=== PATIENT | male | born 1980 | race Caucasian/White ===

== ENCOUNTER → 2019-09-03 11:20 | Outpatient (CLI) | payer OTHER, SELFPAY ==
--- NOTE | ~2019-09-03 | US_ITS ---
EXAMINATION: US soft tissue head and neck DATE: 09/03/2019 11:41 INDICATION: Right neck mass. TECHNIQUE: Multiple ultrasound images of the thyroid were obtained. COMPARISON: None. FINDINGS: The right thyroid lobe measures 4.9 x 3.5 x 3.7 cm. The left thyroid lobe measures 5.1 x 1.1 x 1.6 c m. In the right thyroid lobe, there is a 3.6 cm predominantly cystic nodule with smooth margin with small mural solid component that is hypoechoic with punctate echogenic foci (TI-RADS TR4). IMPRESSION: 1. Right thyroid nodule. Consider ultrasound-guided fine-needle aspiration of the solid component of the nodule. Reviewed, dictated and finalized at location A. IMPRESSION: 1. Right thyroid nodule. Consider ultrasound-guided fine-needle aspiration of t he solid component of the nodule.
== END ==
PROVIDERS: PCP Student in an Organized Health Care Education/Training Program; Visit Provider Student in an Organized Health Care Education/Training Program
DX: R22.1 Localized swelling, mass and lump, neck (principal); E04.1 Nontoxic single thyroid nodule
CPT/HCPCS: 76536

== ENCOUNTER 2019-09-11 13:01 | Outpatient (CLI) | payer OTHER, SELFPAY ==
--- NOTE | ~2019-09-11 | US_ITS ---
EXAMINATION: US FNA w image guidance DATE: 09/11/2019 14:11 INDICATION: Right thyroid nodule. TECHNIQUE: The procedure and its benefits, risks, and benefits were discussed with the patient. Risks specifical ly discussed included bleeding. The patient verbalized understanding of the risks and agreed to proce ed. The neck was prepped and draped in the usual sterile manner. 1% lidocaine was used for local ane sthesia. The liquid portion of the right thyroid nodule was aspirated with a 21-gauge needle and disc arded. 5 passes were made with a 25G needle into the solid portion of the nodule. Appropriate needle location was documented with continuous sonographic guidance. There were no immediate complications . FINDINGS: Grayscale ultrasound images demonstrate needles advanced into a 3.5 cm mixed solid and cystic right t hyroid nodule for biopsy. IMPRESSION: 1. Ultrasound-guided fine needle aspiration of a 3.5 cm mixed solid and cystic right thyroid nodule. Reviewed, dictated and finalized at location A.
== END 2019-09-11 13:02 | disposition home or self-care (01) ==
LOC: ANHIMG 13:07
PROVIDERS: PCP Student in an Organized Health Care Education/Training Program; Visit Provider Otolaryngology
DX: E04.1 Nontoxic single thyroid nodule (principal)
CPT/HCPCS: 10005; 88108; 88173; 88305

== ENCOUNTER → 2021-07-03 12:03 | Outpatient (CLI) | payer OTHER, SELFPAY ==
--- NOTE | ~2021-07-03 | MR_ITS ---
EXAMINATION: MR abdomen wo/w con DATE: 07/03/2021 13:07 INDICATION: Liver lesion. TECHNIQUE: Magnetic resonance imaging (MRI) of the abdomen was performed without and with 20 mL Multi Za intravenous contrast. Sequences included coronal T2-weighted FS FSE, coronal and axial FS FIEST A, axial T2-weighted FSE, coronal LAVA-flex, axial STIR FSE, axial DWI, axial dual-echo T1-weighted F SPGR, and axial LAVA. Postcontrast sequences included coronal LAVA-flex and a time course of axial LA VA. COMPARISON: Abdomen MRI 04/22/2019 FINDINGS: The liver and spleen are normal. The gallbladder is contracted. The pancreas, adrenal glands, and kid neys are normal. There are no dilated loops of bowel. There are no pathologically enlarged lymph node s. There is no free intraperitoneal fluid. IMPRESSION: 1. Normal liver. Reviewed, dictated and finalized at location E. T [employer] IMPRESSION: 1. Normal liver.
[2021-07-03 12:26] LABS: Estimated Glomerular Filt Rate > 60
== END ==
PROVIDERS: PCP Student in an Organized Health Care Education/Training Program; Visit Provider Student in an Organized Health Care Education/Training Program
DX: K76.0 Fatty (change of) liver, not elsewhere classified (principal)
CPT/HCPCS: 74183; A9577

== ENCOUNTER 2022-01-08 18:42 | Emergency (ER) | payer OTHER, SELFPAY ==
--- NOTE | 2022-01-08 18:45 | ED.SKABFB ---
HPI - Skin/Abscess/Foreign Bdy General Chief complaint: Recheck/Abnormal Lab/Rx Stated complaint: wound check Time Seen by Provider: 01/08/22 18:45 Source: patient and RN notes reviewed History of Present Illness HPI narrative: Patient is a 41-year-old male who presents the urgent care with complaints of a possible infection to his vasectomy site. Patient states that he had a vasectomy by [facility] and [place] last Saturday and developed some pain to the surgical site today. Patient states he just went back to work today and noticed the irritation. Patient has not needed to use the jockstrap. Patient took 1 200 mg ibuprofen today. States that there is drainage to the area around the 1 suture. Patient states that he does not require a follow-up after the surgery and has not spoke to his surgeon regarding his current complaint. Patient denies any fever, nausea, vomiting. Patient states he did ice the area after work this evening. No other acute complaints. No acute distress noted. Patient aware of the plan of care. Some parts of this dictation were generated by voice recognition software and may contain typographical and/or grammatical inaccuracies. Related Data Home Medications Medication Instructions Recorded Confirmed lisinopril 10 mg tablet 10 mg PO DAILY 01/08/22 01/08/22 Allergies Allergy/AdvReac Type Severity Reaction Status Date / Time No Known Allergies Allergy Mild Unverified 01/08/22 18:52 Review of Systems Review of Systems: CONSTITUTIONAL: Denies fever, chills, or sweats. EYES: Denies visual changes, redness, or discharge. ENT: Denies rhinorrhea, congestion, sore throat, or otalgia. CARDIOVASCULAR: Denies chest pain, palpitations, or edema. RESPIRATORY: Denies cough or dyspnea. GASTROINTESTINAL: Denies abdominal pain, nausea, vomiting, or diarrhea. GENITOURINARY: Denies dysuria or hematuria. SKIN: Reports of some drainage to the vasectomy site MUSCULOSKELETAL: Denies back pain, joint pain, or myalgia. NEUROLOGIC: Denies headache, numbness, or weakness. All other systems reviewed are negative, except as documented in HPI. [facility] Social History Social History Smoking status: Never smoker Comments At the time of my signature, I reviewed and agree with the nursing past medical, surgical, social, and family history. There is no relevant family history pertinent to the patient complaint. Exam Narrative: GENERAL: This is a well-nourished, well-developed patient, in no apparent distress. HEAD: normocephalic, atraumatic. EYES: PERRL. Sclera clear/white. Vision is grossly intact. EARS: External ears normal NOSE: External nose normal with no obvious nasal discharge, nares without redness, no rhinorrhea. THROAT: Mucous membranes moist NECK: Neck supple CARDIOVASCULAR: Regular rate and rhythm without murmurs, gallops, or rubs. RESPIRATORY: Clear to auscultation. Breath sounds equal bilaterally. No wheezes, rales, or rhonchi. SKIN: Irritation, redness without edema surrounding left testicular surgical suture/surgical site with mild yellow serosanguineous drainage. Mild irritation/redness without edema or drainage surrounding the right testicular surgical suture/surgical site. NEURO: awake, alert, and oriented to person, place and time. There were no obvious focal neurologic abnormalities. EXTREMITIES: No clubbing, cyanosis, or edema. Course Course Level of Care: Express Care Visit Vital Signs Vital signs: Vital Signs Temperature 98.4 F 01/08/22 18:54 Pulse Rate 73 01/08/22 18:54 Respiratory Rate 16 01/08/22 18:54 Blood Pressure 142/96 H 01/08/22 18:54 Pulse Oximetry 99 01/08/22 18:54 Temperature 98.4 F 01/08/22 18:54 Pulse Rate 73 01/08/22 18:54 Respiratory Rate 16 01/08/22 18:54 Blood Pressure 142/96 H 01/08/22 18:54 Pulse Oximetry 99 01/08/22 18:54 Reviewed-patient is informed that they may have pre-hypertension or hypertension based on a blood press
[2022-01-08 18:54] VITALS: BP 142/96; PULSE 73; RESP 16; TEMP 36.9; O2SAT 99
== END 2022-01-08 19:05 | disposition home or self-care (01) ==
PROVIDERS: Emergency Provider Nurse Practitioner Family; PCP Student in an Organized Health Care Education/Training Program
DX: T81.41XA Infection following a procedure, superficial incisional surgical site, initial encounter (principal); Z98.52 Vasectomy status; I10 Essential (primary) hypertension
CPT/HCPCS: 99213; G0463